=== PATIENT | female | born 1935 | race Caucasian/White ===

== ENCOUNTER 2018-12-09 14:02 | Inpatient (IN) | payer MEDICARE, OTHER ==
[2018-12-09 15:24] LABS: ADD MAN DIFF? NO
[2018-12-09 15:30] LABS: WHITE BLOOD COUNT 8.1 10^3/ul (4.8-10.8)
[2018-12-09 15:30] LABS: BASOPHILS % 0.4 % (0.0-2.0); EOSINOPHILS % 0.1 % (0.0-7.0); HEMATOCRIT 32.2 % (37.0-47.0); HEMOGLOBIN 9.9 g/dl (12.0-16.0); LYMPHOCYTES # 0.7 10^3/ul (0.8-2.9); LYMPHOCYTES % 8.3 % (15.0-51.0); MEAN CORPUSCULAR HEMOGLOBIN 27.5 pg (29.0-33.0); MEAN CORPUSCULAR HGB CONC 30.7 g/dl (32.0-37.0); MEAN CORPUSCULAR VOLUME 89.4 fl (82.0-101.0); MEAN PLATELET VOLUME 9.2 fl (7.4-10.4); MONOCYTE # 0.6 10^3/ul (0.3-0.9); MONOCYTES % 7.5 % (0.0-11.0); NEUTROPHIL # 6.7 10^3/ul (1.6-7.5); NEUTROPHILS % 83.1 % (39.0-77.0); PLATELET COUNT 233 10^3/UL (140-415); RED CELL DISTRIBUTION WIDTH 15.8 % (11.5-14.5)
[2018-12-09 15:48] LABS: ALBUMIN 4.4 g/dl (3.3-4.9); ALBUMIN/GLOBULIN RATIO 1.02; ALKALINE PHOSPHATASE 81 IU/L (42-121); ANION GAP 19 (5-13); ASPARTATE AMINO TRANSFERASE 12 IU/L (15-46); BILIRUBIN,INDIRECT 0.2 mg/dl (0-1.1); BILIRUBIN,TOTAL 0.2 mg/dl (0.2-1.3); BLOOD UREA NITROGEN 49 mg/dl (7-20); CALCIUM 10.5 mg/dl (8.4-10.2); CARBON DIOXIDE 14 mmol/L (21-31); CHLORIDE 112 mmol/L (97-110); CREATININE 3.46 mg/dl (0.44-1.00); GLUCOSE 218 mg/dl (70-220); LIPASE 68 U/L (23-300); POTASSIUM 4.1 mmol/L (3.5-5.1); SODIUM 145 mmol/L (135-144); TOTAL PROTEIN 8.7 g/dl (6.1-8.1)
[2018-12-09 15:49] LABS: ALANINE AMINOTRANSFERASE < 6 IU/L (13-69)
[2018-12-09 16:12] LABS: URINE PH (Dip) POC 5.5 (5.0-8.5)
[2018-12-09 16:12] LABS: URINE BLOOD (Dip) POC 1+ (NEGATIVE); URINE GLUCOSE (Dip) POC Negative (NEGATIVE); URINE KETONES (Dip) POC Trace (NEGATIVE); URINE LEUKOCYTE EST (Dip) POC 1+ (NEGATIVE); URINE NITRITE (Dip) POC Negative (NEGATIVE); URINE TOTAL PROTEIN POC 3+ (NEGATIVE)
[2018-12-09] MEDS: PIPER-TAZO 2.25 GM (PMX) 50 ML IVPB (18:43)
[2018-12-09] MEDS ORDERED: HYDROCODONE/APAP (5/325) TAB PO (20:30)
[2018-12-09] MEDS ORDERED: morphine 2 MG INJ IV (20:30)
[2018-12-09] MEDS ORDERED: NACL 0.9% 3 ML SYG IV (20:30)
[2018-12-09] MEDS ORDERED: traMADol 50 MG TAB PO (20:30)
[2018-12-09] MEDS ORDERED: ZOLPIDEM 5 MG TAB PO (20:30)
[2018-12-09] MEDS ORDERED: ACETAMINOPHEN 325 MG TAB PO ×2 (20:30)
[2018-12-09] MEDS ORDERED: ONDANSETRON 4 MG INJ IV (20:30)
[2018-12-09] MEDS: SOD CHLORIDE 0.9% 1,000 ML IV (22:38)
[2018-12-09] MEDS: CEFTRIAXONE 1 GM/50 ML (PMX) 50 ML IVPB (22:39)
[2018-12-09] MEDS: MIRTAZAPINE 15 MG TAB PO (23:07)
[2018-12-09] MEDS: clonAZEPAM 0.5 MG TAB PO (23:07)
[2018-12-09] MEDS: MELATONIN 5 MG TABLET PO (23:07)
[2018-12-09] MEDS: OXYBUTYNIN 5 MG TAB PO (23:07)
[2018-12-09] MEDS: METOPROLOL 25 MG TAB PO (23:08)
[2018-12-09] MEDS: NIFEdipine (XL) 60 MG TAB PO (23:08)
[2018-12-09] MEDS: HEPARIN 5,000 UNIT/1 ML VIAL SC (23:27)
[2018-12-10] MEDS: clonAZEPAM 0.5 MG TAB PO ×4 (04:30→20:49)
[2018-12-10] MEDS: PANTOPRAZOLE (EC) 40 MG TAB PO ×2 (05:42→05:47)
[2018-12-10 06:55] LABS: ADD MAN DIFF? NO
[2018-12-10 07:02] LABS: RETICULOCYTE COUNT # 0.041 X10^6 (0.020-0.110); RETICULOCYTE COUNT % 1.4 % (0.5-1.5)
[2018-12-10 07:05] LABS: WHITE BLOOD COUNT 5.9 10^3/ul (4.8-10.8)
[2018-12-10 07:05] LABS: BASOPHILS % 0.3 % (0.0-2.0); EOSINOPHILS # 0.1 10^3/ul (0.0-0.5); EOSINOPHILS % 2.2 % (0.0-7.0); HEMATOCRIT 28.3 % (37.0-47.0); HEMOGLOBIN 8.6 g/dl (12.0-16.0); LYMPHOCYTES # 1.2 10^3/ul (0.8-2.9); LYMPHOCYTES % 20.6 % (15.0-51.0); MEAN CORPUSCULAR HGB CONC 30.4 g/dl (32.0-37.0); MEAN PLATELET VOLUME 9.2 fl (7.4-10.4); MONOCYTE # 0.6 10^3/ul (0.3-0.9); MONOCYTES % 10.8 % (0.0-11.0); NEUTROPHIL # 3.9 10^3/ul (1.6-7.5); NEUTROPHILS % 65.6 % (39.0-77.0); PLATELET COUNT 183 10^3/UL (140-415); RED BLOOD COUNT 3.18 10^6/ul (4.20-5.40); RED CELL DISTRIBUTION WIDTH 15.8 % (11.5-14.5)
[2018-12-10 07:17] LABS: RETICULOCYTE RBC 3.09
[2018-12-10 07:29] LABS: LACTATE DEHYDROGENASE 333 IU/L (313-618)
[2018-12-10 07:37] LABS: ALBUMIN 3.6 g/dl (3.3-4.9); ALKALINE PHOSPHATASE 67 IU/L (42-121); ANION GAP 10 (5-13); ASPARTATE AMINO TRANSFERASE 14 IU/L (15-46); BILIRUBIN,INDIRECT 0.1 mg/dl (0-1.1); BILIRUBIN,TOTAL 0.1 mg/dl (0.2-1.3); BLOOD UREA NITROGEN 53 mg/dl (7-20); CALCIUM 9.7 mg/dl (8.4-10.2); CARBON DIOXIDE 20 mmol/L (21-31); CHLORIDE 115 mmol/L (97-110); CHOLESTEROL 141 mg/dl (100-200); CREATININE 3.41 mg/dl (0.44-1.00); GLUCOSE 130 mg/dl (70-220); HDL CHOLESTEROL 35 mg/dl (33-92); LDL CHOLESTEROL,CALCULATED 84 mg/dl; POTASSIUM 4.1 mmol/L (3.5-5.1); SODIUM 145 mmol/L (135-144); TOTAL PROTEIN 7.2 g/dl (6.1-8.1); TRIGLYCERIDES 111 mg/dl (0-149)
[2018-12-10 07:42] LABS: IRON 34 ug/dl (35-150)
[2018-12-10 07:51] LABS: % IRON SATURATION 18 % SAT (22-52); TOTAL IRON BINDING CAPACITY 194 ug/dl (241-421)
[2018-12-10 07:56] LABS: ALANINE AMINOTRANSFERASE < 6 IU/L (13-69)
[2018-12-10 08:36] LABS: FOLATE > 20.0 ng/ml (2.8-20.0)
[2018-12-10 08:50] LABS: CANCER ANTIGEN 125 24.7 U/ml (0.0-35.0); CARCINOEMBRYONIC ANTIGEN 1.8 ng/ml (0.0-5.0)
[2018-12-10 08:55] LABS: HEMOGLOBIN A1C 6.1 % (0-5.9)
[2018-12-10] MEDS: METOPROLOL 25 MG TAB PO ×2 (09:00→20:49)
[2018-12-10] MEDS: CLOPIDOGREL 75 MG TAB PO (09:02)
[2018-12-10] MEDS: NIFEdipine (XL) 60 MG TAB PO ×2 (09:02→20:50)
[2018-12-10] MEDS: OXYBUTYNIN 5 MG TAB PO ×3 (09:02→20:49)
[2018-12-10] MEDS: HEPARIN 5,000 UNIT/1 ML VIAL SC ×2 (09:04→20:51)
[2018-12-10] MEDS: SOD CHLORIDE 0.9% 1,000 ML IV ×2 (10:36→16:03)
[2018-12-10 11:37] LABS: ADD UMIC YES; UR ASCORBIC ACID NEGATIVE (NEGATIVE); UR BACTERIA MODERATE /HPF (NONE SEEN); UR BILIRUBIN (Dip) NEGATIVE (NEGATIVE); UR BLOOD (Dip) 3+ mg/dL (NEGATIVE); UR CLARITY TURBID (CLEAR); UR COLOR AMBER (YELLOW); UR GLUCOSE (Dip) NEGATIVE (NEGATIVE); UR KETONES (Dip) TRACE mg/dL (NEGATIVE); UR LEUKOCYTE ESTERASE (Dip) 3+ Leu/ul (NEGATIVE); UR MUCUS FEW /HPF (NONE SEEN); UR NITRITE (Dip) NEGATIVE (NEGATIVE); UR NONSQUAMOUS EPITHELIAL CELL 2 /HPF (NONE SEEN); UR RBC > 182 /HPF (0-5); UR SPECIFIC GRAVITY (Dip) 1.014 (1.003-1.030); UR TOTAL PROTEIN (Dip) 2+ mg/dl (NEGATIVE); UR UROBILINOGEN (Dip) NEGATIVE (NEGATIVE); UR WBC > 182 /HPF (0-5)
[2018-12-10] MEDS: SOD FERRIC GLUC COMPLX 125 MG in SOD CHLORIDE 0.9% 100 ML IVPB (12:08)
[2018-12-10 14:31] LABS: SODIUM,URINE RANDOM 37 mmol/L (30-90)
[2018-12-10 14:31] LABS: CREATININE,URINE RANDOM 98.95 mg/dl (20-320)
[2018-12-10] MEDS: MELATONIN 5 MG TABLET PO (20:49)
[2018-12-10] MEDS: CEFTRIAXONE 1 GM/50 ML (PMX) 50 ML IVPB (20:49)
[2018-12-10] MEDS: MIRTAZAPINE 15 MG TAB PO (20:50)
[2018-12-11] MEDS: PANTOPRAZOLE (EC) 40 MG TAB PO (05:30)
[2018-12-11] MEDS: clonAZEPAM 0.5 MG TAB PO ×3 (05:30→20:21)
[2018-12-11] MEDS: SOD CHLORIDE 0.9% 1,000 ML IV (08:59)
[2018-12-11] MEDS: OXYBUTYNIN 5 MG TAB PO ×3 (09:01→20:20)
[2018-12-11] MEDS: METOPROLOL 25 MG TAB PO ×2 (09:02→20:20)
[2018-12-11] MEDS: CLOPIDOGREL 75 MG TAB PO (09:03)
[2018-12-11] MEDS: NIFEdipine (XL) 60 MG TAB PO ×2 (09:03→20:13)
[2018-12-11] MEDS: HEPARIN 5,000 UNIT/1 ML VIAL SC ×2 (09:12→20:18)
[2018-12-11] MEDS: NA PHOSPHATE/BIPHOS 133 ML ENEMA PR (09:34)
[2018-12-11 11:05] LABS: ADD MAN DIFF? NO
[2018-12-11 11:07] LABS: WHITE BLOOD COUNT 5.4 10^3/ul (4.8-10.8)
[2018-12-11 11:08] LABS: BASOPHILS % 0.4 % (0.0-2.0); EOSINOPHILS # 0.1 10^3/ul (0.0-0.5); EOSINOPHILS % 1.7 % (0.0-7.0); HEMATOCRIT 29.2 % (37.0-47.0); HEMOGLOBIN 8.8 g/dl (12.0-16.0); LYMPHOCYTES # 0.6 10^3/ul (0.8-2.9); LYMPHOCYTES % 11.8 % (15.0-51.0); MEAN CORPUSCULAR HEMOGLOBIN 27.6 pg (29.0-33.0); MEAN CORPUSCULAR HGB CONC 30.1 g/dl (32.0-37.0); MEAN CORPUSCULAR VOLUME 91.5 fl (82.0-101.0); MEAN PLATELET VOLUME 9.2 fl (7.4-10.4); MONOCYTE # 0.5 10^3/ul (0.3-0.9); MONOCYTES % 8.5 % (0.0-11.0); NEUTROPHIL # 4.2 10^3/ul (1.6-7.5); NEUTROPHILS % 77.2 % (39.0-77.0); PLATELET COUNT 149 10^3/UL (140-415); RED BLOOD COUNT 3.19 10^6/ul (4.20-5.40); RED CELL DISTRIBUTION WIDTH 15.8 % (11.5-14.5)
[2018-12-11 11:34] LABS: ANION GAP 11 (5-13); BLOOD UREA NITROGEN 37 mg/dl (7-20); CALCIUM 9.7 mg/dl (8.4-10.2); CARBON DIOXIDE 18 mmol/L (21-31); CHLORIDE 117 mmol/L (97-110); CREATININE 2.99 mg/dl (0.44-1.00); GLUCOSE 190 mg/dl (70-220); MAGNESIUM 1.8 mg/dl (1.7-2.5); PHOSPHORUS 3.7 mg/dl (2.5-4.9); SODIUM 146 mmol/L (135-144)
[2018-12-11] MEDS: SOD FERRIC GLUC COMPLX 125 MG in SOD CHLORIDE 0.9% 100 ML IVPB (12:33)
[2018-12-11 12:35] LABS: OCCULT BLOOD STOOL NEGATIVE (NEGATIVE)
[2018-12-11 16:46] LABS: CREATININE, RANDOM URINE 94 mg/dL (20-275); MICROALBUMIN 44.5 mg/dL; MICROALBUMIN/CREATININE RATIO 473 (<30)
[2018-12-11] MEDS: CEFTRIAXONE 1 GM/50 ML (PMX) 50 ML IVPB (20:12)
[2018-12-11] MEDS: MIRTAZAPINE 15 MG TAB PO (20:13)
[2018-12-11] MEDS: MELATONIN 5 MG TABLET PO (21:13)
[2018-12-12] MEDS: SOD CHLORIDE 0.9% 1,000 ML IV ×2 (00:14→19:04)
[2018-12-12] MEDS: clonAZEPAM 0.5 MG TAB PO ×3 (04:30→20:42)
[2018-12-12] MEDS: PANTOPRAZOLE (EC) 40 MG TAB PO (05:59)
[2018-12-12 06:03] LABS: ADD MAN DIFF? NO
[2018-12-12 06:22] LABS: BASOPHILS % 0.4 % (0.0-2.0); EOSINOPHILS # 0.1 10^3/ul (0.0-0.5); EOSINOPHILS % 2.9 % (0.0-7.0); HEMATOCRIT 25.2 % (37.0-47.0); HEMOGLOBIN 7.6 g/dl (12.0-16.0); LYMPHOCYTES # 1.1 10^3/ul (0.8-2.9); LYMPHOCYTES % 23.7 % (15.0-51.0); MEAN CORPUSCULAR HEMOGLOBIN 27.4 pg (29.0-33.0); MEAN CORPUSCULAR HGB CONC 30.2 g/dl (32.0-37.0); MEAN PLATELET VOLUME 10.1 fl (7.4-10.4); MONOCYTE # 0.6 10^3/ul (0.3-0.9); MONOCYTES % 13.7 % (0.0-11.0); NEUTROPHIL # 2.7 10^3/ul (1.6-7.5); NEUTROPHILS % 58.9 % (39.0-77.0); PLATELET COUNT 144 10^3/UL (140-415); RED BLOOD COUNT 2.77 10^6/ul (4.20-5.40); RED CELL DISTRIBUTION WIDTH 15.9 % (11.5-14.5)
[2018-12-12 06:22] LABS: WHITE BLOOD COUNT 4.5 10^3/ul (4.8-10.8)
[2018-12-12 06:40] LABS: ANION GAP 10 (5-13); BLOOD UREA NITROGEN 39 mg/dl (7-20); CARBON DIOXIDE 17 mmol/L (21-31); CHLORIDE 116 mmol/L (97-110); CREATININE 2.53 mg/dl (0.44-1.00); GLUCOSE 103 mg/dl (70-220); MAGNESIUM 1.7 mg/dl (1.7-2.5); PHOSPHORUS 3.4 mg/dl (2.5-4.9); SODIUM 143 mmol/L (135-144)
[2018-12-12] MEDS ORDERED: LIDOCAINE 2% (SDV) 5 ML INJ (07:00)
[2018-12-12] MEDS: CLOPIDOGREL 75 MG TAB PO (08:40)
[2018-12-12] MEDS: HEPARIN 5,000 UNIT/1 ML VIAL SC ×2 (08:41→20:41)
[2018-12-12] MEDS: OXYBUTYNIN 5 MG TAB PO ×3 (09:19→20:38)
[2018-12-12] MEDS: NIFEdipine (XL) 60 MG TAB PO ×2 (09:20→20:38)
[2018-12-12] MEDS: METOPROLOL 25 MG TAB PO ×2 (09:21→20:37)
[2018-12-12] MEDS ORDERED: hydrALAzine 20 MG INJ IV (12:00)
[2018-12-12] MEDS ORDERED: LABETALOL HCL 20MG INJ IV (12:00)
[2018-12-12] MEDS ORDERED: ONDANSETRON 4 MG INJ IV (12:00)
[2018-12-12] MEDS: SOD FERRIC GLUC COMPLX 125 MG in SOD CHLORIDE 0.9% 100 ML IVPB (13:16)
[2018-12-12] MEDS: EPOETIN ALFA-EPBX (NON-ESRD 10,000 UNIT/ML VIAL SC (13:16)
[2018-12-12 15:14] LABS: IMMEDIATE SPIN CROSSMATCH 1 1
[2018-12-12] MEDS: CEFEPIME 1GM/50 ML (PMX) 50 ML IVPB (19:02)
[2018-12-12] MEDS: MELATONIN 5 MG TABLET PO (20:41)
[2018-12-12] MEDS: MIRTAZAPINE 15 MG TAB PO (20:41)
[2018-12-13] MEDS: clonAZEPAM 0.5 MG TAB PO ×3 (04:11→21:07)
[2018-12-13] MEDS: PANTOPRAZOLE (EC) 40 MG TAB PO (06:00)
[2018-12-13 06:12] LABS: ADD MAN DIFF? NO
[2018-12-13 06:19] LABS: BASOPHILS % 0.4 % (0.0-2.0); EOSINOPHILS # 0.1 10^3/ul (0.0-0.5); EOSINOPHILS % 2.3 % (0.0-7.0); HEMATOCRIT 29.6 % (37.0-47.0); HEMOGLOBIN 9.3 g/dl (12.0-16.0); LYMPHOCYTES # 0.9 10^3/ul (0.8-2.9); LYMPHOCYTES % 19.1 % (15.0-51.0); MEAN CORPUSCULAR HEMOGLOBIN 27.8 pg (29.0-33.0); MEAN CORPUSCULAR HGB CONC 31.4 g/dl (32.0-37.0); MEAN CORPUSCULAR VOLUME 88.4 fl (82.0-101.0); MEAN PLATELET VOLUME 9.8 fl (7.4-10.4); MONOCYTE # 0.6 10^3/ul (0.3-0.9); MONOCYTES % 11.9 % (0.0-11.0); NEUTROPHIL # 3.1 10^3/ul (1.6-7.5); NEUTROPHILS % 65.7 % (39.0-77.0); PLATELET COUNT 140 10^3/UL (140-415); RED BLOOD COUNT 3.35 10^6/ul (4.20-5.40); RED CELL DISTRIBUTION WIDTH 15.7 % (11.5-14.5)
[2018-12-13 06:19] LABS: WHITE BLOOD COUNT 4.7 10^3/ul (4.8-10.8)
[2018-12-13 06:49] LABS: ANION GAP 12 (5-13); BLOOD UREA NITROGEN 31 mg/dl (7-20); CARBON DIOXIDE 16 mmol/L (21-31); CHLORIDE 117 mmol/L (97-110); CREATININE 2.22 mg/dl (0.44-1.00); GLUCOSE 108 mg/dl (70-220); MAGNESIUM 1.7 mg/dl (1.7-2.5); PHOSPHORUS 2.9 mg/dl (2.5-4.9); POTASSIUM 3.7 mmol/L (3.5-5.1); SODIUM 145 mmol/L (135-144)
[2018-12-13] MEDS: METOPROLOL 25 MG TAB PO ×2 (09:13→21:07)
[2018-12-13] MEDS: CLOPIDOGREL 75 MG TAB PO (09:14)
[2018-12-13] MEDS: NIFEdipine (XL) 60 MG TAB PO ×2 (09:14→21:08)
[2018-12-13] MEDS: OXYBUTYNIN 5 MG TAB PO ×3 (09:14→21:06)
[2018-12-13] MEDS: HEPARIN 5,000 UNIT/1 ML VIAL SC ×2 (09:15→21:10)
[2018-12-13] MEDS: SOD CHLORIDE 0.9% 1,000 ML IV (11:33)
[2018-12-13] MEDS: SOD FERRIC GLUC COMPLX 125 MG in SOD CHLORIDE 0.9% 100 ML IVPB (13:04)
[2018-12-13] MEDS: CEFEPIME 1GM/50 ML (PMX) 50 ML IVPB (15:53)
[2018-12-13] MEDS: MIRTAZAPINE 15 MG TAB PO (21:07)
[2018-12-13] MEDS: MELATONIN 5 MG TABLET PO (21:07)
[2018-12-14] MEDS: clonAZEPAM 0.5 MG TAB PO ×3 (03:44→20:27)
[2018-12-14] MEDS: PANTOPRAZOLE (EC) 40 MG TAB PO (06:20)
[2018-12-14 06:55] LABS: ADD MAN DIFF? NO
[2018-12-14 06:58] LABS: WHITE BLOOD COUNT 6.7 10^3/ul (4.8-10.8)
[2018-12-14 06:58] LABS: BASOPHILS % 0.4 % (0.0-2.0); EOSINOPHILS # 0.1 10^3/ul (0.0-0.5); EOSINOPHILS % 1.6 % (0.0-7.0); HEMOGLOBIN 9.4 g/dl (12.0-16.0); LYMPHOCYTES # 0.8 10^3/ul (0.8-2.9); LYMPHOCYTES % 11.9 % (15.0-51.0); MEAN CORPUSCULAR HEMOGLOBIN 27.6 pg (29.0-33.0); MEAN CORPUSCULAR HGB CONC 31.3 g/dl (32.0-37.0); MEAN CORPUSCULAR VOLUME 88.2 fl (82.0-101.0); MEAN PLATELET VOLUME 9.8 fl (7.4-10.4); MONOCYTES % 14.4 % (0.0-11.0); NEUTROPHIL # 4.8 10^3/ul (1.6-7.5); NEUTROPHILS % 70.8 % (39.0-77.0); PLATELET COUNT 140 10^3/UL (140-415); RED CELL DISTRIBUTION WIDTH 15.6 % (11.5-14.5)
[2018-12-14 07:36] LABS: ANION GAP 8 (5-13); BLOOD UREA NITROGEN 25 mg/dl (7-20); CALCIUM 9.3 mg/dl (8.4-10.2); CARBON DIOXIDE 18 mmol/L (21-31); CHLORIDE 118 mmol/L (97-110); CREATININE 2.19 mg/dl (0.44-1.00); GLUCOSE 112 mg/dl (70-220); PHOSPHORUS 2.6 mg/dl (2.5-4.9); POTASSIUM 3.6 mmol/L (3.5-5.1); SODIUM 144 mmol/L (135-144)
[2018-12-14 07:56] LABS: MAGNESIUM 1.6 mg/dl (1.7-2.5)
[2018-12-14] MEDS: OXYBUTYNIN 5 MG TAB PO ×3 (09:20→20:29)
[2018-12-14] MEDS: NIFEdipine (XL) 60 MG TAB PO ×2 (09:21→20:28)
[2018-12-14] MEDS: CLOPIDOGREL 75 MG TAB PO (09:21)
[2018-12-14] MEDS: METOPROLOL 25 MG TAB PO ×2 (09:21→20:28)
[2018-12-14] MEDS: MAGNESIUM SULFATE 2 GM/50 ML 50 ML IVPB (09:22)
[2018-12-14] MEDS: HEPARIN 5,000 UNIT/1 ML VIAL SC ×2 (09:24→20:31)
[2018-12-14] MEDS: SOD FERRIC GLUC COMPLX 125 MG in SOD CHLORIDE 0.9% 100 ML IVPB (12:41)
[2018-12-14] MEDS: MEGESTROL (40 MG/ML) 10ML CUP PO (15:23)
[2018-12-14] MEDS: CEFEPIME 1GM/50 ML (PMX) 50 ML IVPB (15:48)
[2018-12-14] MEDS: MELATONIN 5 MG TABLET PO (20:27)
[2018-12-14] MEDS: MIRTAZAPINE 15 MG TAB PO (20:29)
[2018-12-15] MEDS: clonAZEPAM 0.5 MG TAB PO ×3 (03:39→20:40)
[2018-12-15] MEDS: PANTOPRAZOLE (EC) 40 MG TAB PO (05:42)
[2018-12-15] MEDS: CLOPIDOGREL 75 MG TAB PO (08:36)
[2018-12-15] MEDS: MEGESTROL (40 MG/ML) 10ML CUP PO ×2 (08:36→08:51)
[2018-12-15] MEDS: OXYBUTYNIN 5 MG TAB PO ×3 (08:36→20:41)
[2018-12-15] MEDS: HEPARIN 5,000 UNIT/1 ML VIAL SC ×2 (08:39→20:43)
[2018-12-15] MEDS: NIFEdipine (XL) 60 MG TAB PO ×2 (08:40→20:40)
[2018-12-15] MEDS: METOPROLOL 25 MG TAB PO ×2 (08:40→20:41)
[2018-12-15] MEDS ORDERED: MEGESTROL (40 MG/ML) 10ML CUP PO (09:00)
[2018-12-15 09:19] LABS: ANION GAP 10 (5-13); BLOOD UREA NITROGEN 27 mg/dl (7-20); CALCIUM 9.4 mg/dl (8.4-10.2); CARBON DIOXIDE 18 mmol/L (21-31); CHLORIDE 114 mmol/L (97-110); CREATININE 2.14 mg/dl (0.44-1.00); GLUCOSE 140 mg/dl (70-220); MAGNESIUM 2.2 mg/dl (1.7-2.5); PHOSPHORUS 2.7 mg/dl (2.5-4.9); POTASSIUM 3.9 mmol/L (3.5-5.1); SODIUM 142 mmol/L (135-144)
[2018-12-15] MEDS: DOCUSATE SODIUM 100 MG CAP PO (15:58)
[2018-12-15] MEDS: MAGNESIUM CITRATE 300 ML BTL PO (17:12)
[2018-12-15] MEDS: CEFEPIME 1GM/50 ML (PMX) 50 ML IVPB (17:13)
[2018-12-15] MEDS: MELATONIN 5 MG TABLET PO (20:41)
[2018-12-15] MEDS: MIRTAZAPINE 15 MG TAB PO (20:41)
[2018-12-16] MEDS: PANTOPRAZOLE (EC) 40 MG TAB PO (05:39)
[2018-12-16] MEDS: clonAZEPAM 0.5 MG TAB PO ×3 (05:39→20:18)
[2018-12-16] MEDS: CLOPIDOGREL 75 MG TAB PO (09:00)
[2018-12-16] MEDS: HEPARIN 5,000 UNIT/1 ML VIAL SC ×3 (09:00→20:30)
[2018-12-16] MEDS: METOPROLOL 25 MG TAB PO ×2 (09:00→20:22)
[2018-12-16] MEDS: MEGESTROL (40 MG/ML) 10ML CUP PO (09:00)
[2018-12-16] MEDS: OXYBUTYNIN 5 MG TAB PO ×3 (09:00→20:18)
[2018-12-16] MEDS: NIFEdipine (XL) 60 MG TAB PO ×2 (09:00→20:19)
[2018-12-16] MEDS: CEFEPIME 1GM/50 ML (PMX) 50 ML IVPB ×2 (16:00→17:42)
[2018-12-16] MEDS: MAGNESIUM HYDROXIDE 30ML CUP PO (20:18)
[2018-12-16] MEDS: MELATONIN 5 MG TABLET PO (20:19)
[2018-12-16] MEDS: MIRTAZAPINE 15 MG TAB PO (20:19)
[2018-12-17] MEDS: clonAZEPAM 0.5 MG TAB PO ×3 (04:05→20:09)
[2018-12-17] MEDS: PANTOPRAZOLE (EC) 40 MG TAB PO (05:32)
[2018-12-17] MEDS: CLOPIDOGREL 75 MG TAB PO (08:38)
[2018-12-17] MEDS: OXYBUTYNIN 5 MG TAB PO ×3 (08:38→20:09)
[2018-12-17] MEDS: METOPROLOL 25 MG TAB PO ×2 (08:39→20:10)
[2018-12-17] MEDS: NIFEdipine (XL) 60 MG TAB PO ×2 (08:39→20:09)
[2018-12-17] MEDS: HEPARIN 5,000 UNIT/1 ML VIAL SC ×2 (08:44→20:11)
[2018-12-17] MEDS: MEGESTROL (40 MG/ML) 10ML CUP PO (08:45)
[2018-12-17] MEDS: POLYETHYLENE GLYCOL 17 GM PACKET PO (08:45)
[2018-12-17] MEDS: MELATONIN 5 MG TABLET PO (20:09)
[2018-12-17] MEDS: MIRTAZAPINE 15 MG TAB PO (20:10)
[2018-12-18] MEDS: clonAZEPAM 0.5 MG TAB PO ×3 (04:30→12:30)
[2018-12-18] MEDS: PANTOPRAZOLE (EC) 40 MG TAB PO (06:29)
[2018-12-18] MEDS: METOPROLOL 25 MG TAB PO (08:45)
[2018-12-18] MEDS: OXYBUTYNIN 5 MG TAB PO ×2 (08:45→13:00)
[2018-12-18] MEDS: NIFEdipine (XL) 60 MG TAB PO (08:45)
[2018-12-18] MEDS: ETOMIDATE 20 MG INJ (08:46)
[2018-12-18] MEDS: POLYETHYLENE GLYCOL 17 GM PACKET PO (08:46)
[2018-12-18] MEDS: MEGESTROL (40 MG/ML) 10ML CUP PO (08:46)
[2018-12-18] MEDS: HEPARIN 5,000 UNIT/1 ML VIAL SC (08:46)
[2018-12-18] MEDS: CLOPIDOGREL 75 MG TAB PO (08:49)
== END 2018-12-18 13:15 | DRG 682 ==
LOC: E/R 14:02 → 5EC 17:55
PROC: 0DB68ZX Excision of Stomach, Via Natural or Artificial Opening Endoscopic, Diagnostic (ICD-10-PCS; principal; 2018-12-12 11:22)
DX: N17.9 Acute kidney failure, unspecified (principal); G92 Toxic encephalopathy; N39.0 Urinary tract infection, site not specified; E46 Unspecified protein-calorie malnutrition; E87.0 Hyperosmolality and hypernatremia; E87.2 Acidosis; I12.0 Hypertensive chronic kidney disease with stage 5 chronic kidney disease or end stage renal disease; K29.00 Acute gastritis without bleeding; F41.9 Anxiety disorder, unspecified; E11.8 Type 2 diabetes mellitus with unspecified complications; E88.81 Metabolic syndrome and other insulin resistance; J43.9 Emphysema, unspecified; D64.9 Anemia, unspecified; F03.90 Unspecified dementia, unspecified severity, without behavioral disturbance, psychotic disturbance, mood disturbance, and anxiety; I25.10 Atherosclerotic heart disease of native coronary artery without angina pectoris; K21.9 Gastro-esophageal reflux disease without esophagitis; R32 Unspecified urinary incontinence; G47.00 Insomnia, unspecified; Z68.21 Body mass index [BMI] 21.0-21.9, adult; D50.9 Iron deficiency anemia, unspecified; N18.9 Chronic kidney disease, unspecified; R13.10 Dysphagia, unspecified; E07.89 Other specified disorders of thyroid
CPT/HCPCS: 36415; 36430; 71045; 71250; 74176; 76775; 80048; 80053; 80061; 81001; 81003; 82043; 82270; 82378; 82607; 82746; 83036; 83540; 83615; 83690; 83735; 84100; 84155; 84300; 84443; 85025; 85045; 86304; 86850; 86870; 86900; 86901; 86902; 86920; 87081; 87086; 88305; 88312; 97110; 97161; 97530; 99285-25